=== PATIENT | female | born 1930 ===

== ENCOUNTER → 2017-07-23 | Outpatient (REF) | LOC: ZLAB.WCH 09:00 | DX: Z01.89 Encounter for other specified special examinations (principal) ==

== ENCOUNTER → 2017-07-29 | Outpatient (REF) | LOC: COL.CARD 09:02 | DX: Z01.818 Encounter for other preprocedural examination (principal) ==

== ENCOUNTER → 2017-07-31 | Outpatient (REF) | LOC: COL.CARD 15:45 | DX: Z01.89 Encounter for other specified special examinations (principal) ==